=== PATIENT | male | born 1945 | race Two or more races ===

== ENCOUNTER 2017-03-03 11:36 | Emergency (ER) | payer MEDICARE, MEDICAID ==
[~2017-03-03] VITALS: Ht 160 cm; Wt 63.5 kg
[~2017-03-03 11:36] MED LIST: AMLO10TA2 PO; ASPI-449 PO; GEM600T PO; HYD25T PO; INSU70IN9 SC; LISI40TA PO; MET50T PO
[2017-03-03 11:54] VITALS: BP 184/105
== END 2017-03-03 12:40 | disposition home or self-care (01) ==
LOC: ER 11:40
DX: J20.9 Acute bronchitis, unspecified (principal); J45.909 Unspecified asthma, uncomplicated; J44.9 Chronic obstructive pulmonary disease, unspecified; I25.10 Atherosclerotic heart disease of native coronary artery without angina pectoris; E11.9 Type 2 diabetes mellitus without complications; I10 Essential (primary) hypertension; F17.210 Nicotine dependence, cigarettes, uncomplicated; Z88.0 Allergy status to penicillin; Z79.82 Long term (current) use of aspirin; Z79.4 Long term (current) use of insulin

== ENCOUNTER 2017-03-21 13:49 | Emergency (ER) | payer MEDICAID, MEDICARE ==
[~2017-03-21] VITALS: Ht 160 cm; Wt 79.4 kg
[2017-03-21] MEDS ORDERED: cloNIDine HCL 0.1 MG TAB PO ONE (17:00)
[2017-03-21] MEDS ORDERED: HYDROcodone-ACET 10/325MG TAB PO ONE (17:00)
[2017-03-21 17:45] VITALS: BP 178/99
== END 2017-03-21 17:53 | disposition home or self-care (01) ==
LOC: ER 13:49
DX: G89.29 Other chronic pain (principal); M54.2 Cervicalgia; M25.561 Pain in right knee; I10 Essential (primary) hypertension; E11.9 Type 2 diabetes mellitus without complications; Z79.4 Long term (current) use of insulin; J44.9 Chronic obstructive pulmonary disease, unspecified; Z79.82 Long term (current) use of aspirin; Z88.0 Allergy status to penicillin; I25.10 Atherosclerotic heart disease of native coronary artery without angina pectoris; F17.210 Nicotine dependence, cigarettes, uncomplicated

== ENCOUNTER 2017-11-01 20:23 | Observation (INO) | payer MEDICARE, MEDICAID ==
[~2017-11-01] VITALS: Ht 160 cm; Wt 72.6 kg
[2017-11-01] MEDS ORDERED: ETOMIDATE (2MG/ML) 20ML VIAL IV ONE ×2 (20:38→21:15)
[2017-11-01] MEDS ORDERED: SUCCINYLCHOLINE CHLORIDE 20 MG/ML 10ML VIAL IV ONE ×2 (20:39→21:15)
[2017-11-01] MEDS ORDERED: MIDAZOLAM DRIP 50 mg/50mL 50 ML IV ONE ×2 (20:43→22:59)
[2017-11-01] MEDS ORDERED: LEVETIRACETAM 500 MG/5ML INJ IV ONE (21:08)
[2017-11-01] MEDS ORDERED: DEXAMETHASONE SOD PHOS 10MG/1ML VIAL INJ ONE (21:08)
[2017-11-01] MEDS ORDERED: MANNITOL 20 % (20GM/100ML) 500 ML IV ONE (21:08)
[2017-11-01] MEDS ORDERED: LEVETIRACETAM INJ 1,000 MG in D5W 5% 100 ML IV ONE (21:15)
[2017-11-01] MEDS ORDERED: MANNITOL 20% SOLN 100 gm/500ml 250 ML IV ONE (21:15)
[2017-11-01] MEDS ORDERED: DEXAMETHASONE SOD PHOS 10MG/1ML VIAL INJ IV ONE (21:15)
[2017-11-01] MEDS: PROPOFOL 100 ML IV SCH ×2 (21:22→23:08)
[2017-11-01] MEDS ORDERED: PROPOFOL 100 ML IV ONE (21:23)
[2017-11-01] MEDS ORDERED: NICARDIPINE 25MG/250ML BAG KIT 250 ML IV SCH ×2 (21:30→21:57)
[2017-11-01] MEDS ORDERED: NICARDIPINE 25MG/250ML BAG KIT 250 ML IV ONE (21:32)
[2017-11-01 21:46] LABS: Eosinophils # (auto) 0.1 uL; Lymphocytes # (auto) 1.6 uL
[2017-11-01 21:48] LABS: Basophils # (auto) 0.1 uL; Basophils % (auto) 0.6 % (0.0-2.0); Eosinophils % (auto) 0.5 % (0.0-7.0); Hematocrit 39.7 % (41.0-53.0); Hemoglobin 12.3 g/dL (13.5-17.5); Lymphocytes % (auto) 8.7 % (10.0-50.0); Mean Corpuscular Hemoglobin 22.8 pg (28.0-32.0); Mean Corpuscular Hgb Conc. 30.9 g/dL (32.0-36.0); Mean Corpuscular Volume 73.8 fL (80.0-100.0); Monocytes % (auto) 5.4 % (0.0-12.0); Neutrophils # (auto) 15.4 uL; Neutrophils % (auto) 84.8 % (37.0-80.0); Nucleated Red Blood Cells % 0.1 %; Platelet Count (auto) 328 10^3/uL (140-450); Red Blood Cells 5.38 10^6/uL (4.5-5.90); White Blood Cell 18.1 10^3/uL (4.4-10.8)
[2017-11-01 21:53] LABS: Urine Bacteria NONE SEEN /hpf (None Seen); Urine Blood Negative /uL (Negative); Urine Specific Gravity 1.009 (1.001-1.035); Urine WBC <1 /hpf (0 - 3)
[2017-11-01 21:54] LABS: Red Cell Distribution Width 21.6 % (11.8-14.3)
[2017-11-01 22:02] LABS: Albumin 3.8 g/dL (3.4-5.0); Anion Gap 14 (5-15); BUN/Creatinine Ratio 19.7; Blood Alcohol < 3.0 mg/dL (0-5); Blood Urea Nitrogen 12 mg/dL (7-18); Calcium 9.2 mg/dL (8.5-10.1); Carbon Dioxide 20 mmol/L (21-32); Chloride 101 mmol/L (98-107); GFR African American 168 mL/min; GFR Non-African American 138 mL/min; Glucose 179 mg/dL (74-106); Potassium 3.5 mmol/L (3.5-5.1); Sodium 135 mmol/L (136-145)
[2017-11-01 22:04] LABS: Alcohol, Urine < 3.0 mg/dL (0-5); Amphetamine Screen, Urine NEGATIVE (NEGATIVE); Barbiturate Scree,Urine NEGATIVE (NEGATIVE); Benzodiazephine Screen, Urine NEGATIVE (NEGATIVE); Cannabinoid Screen, Urine NEGATIVE (NEGATIVE); Cocaine Screen, Urine NEGATIVE (NEGATIVE); Opiate Scree,Urine NEGATIVE (NEGATIVE); Phencyclidine Screen, Urine NEGATIVE (NEGATIVE)
[2017-11-01 22:11] LABS: Alanine Aminotransferase 14 U/L (16-61); Alkaline Phosphatase 138 U/L (45-117); Aspartate Aminotransferase 28 U/L (15-37); Bilirubin, Total 0.4 mg/dL (0.2-1.0); Total Protein 8.8 g/dL (6.4-8.2)
[2017-11-01 22:55] VITALS: BP 108/70
[2017-11-01] MEDS ORDERED: MIDAZOLAM DRIP 50 mg/50mL 50 ML IV SCH (23:05)
== END 2017-11-01 23:26 | disposition short-term general hospital (02) | DRG 861 ==
LOC: EDBD 20:23 → ER 20:27 → OVERFLOW 20:32 → ER 23:26
PROVIDERS: ADMIT Emergency Medicine; ATTEND Emergency Medicine
DX: R41.82 Altered mental status, unspecified (principal); I61.9 Nontraumatic intracerebral hemorrhage, unspecified; J44.9 Chronic obstructive pulmonary disease, unspecified; I11.9 Hypertensive heart disease without heart failure; E11.9 Type 2 diabetes mellitus without complications; F17.210 Nicotine dependence, cigarettes, uncomplicated; I25.10 Atherosclerotic heart disease of native coronary artery without angina pectoris
CPT/HCPCS: 31500; 36415; 36600; 70450; 71045; 72125; 80053; 80307; 80320; 80329; 81001; 82805; 83605; 84484; 85025; 87070; 87205; 93005; 94002; 96365; 96375; 99285; G0378; J0330; J1100; J1953; J2250; J2704; J7030; 96366; 96368; J7060